=== PATIENT | male | born 2005 | race Caucasian/White ===

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

== ENCOUNTER 2024-06-20 19:45 | Emergency (ER) | payer OTHER, SELFPAY ==
[2024-06-20 19:53] VITALS: BP 114/70; PULSE 108; RESP 18; TEMP 37.8; O2SAT 96; BMI 34.0
[2024-06-20 20:40] LABS: Influenza A - CEPHEID Flu A NEGATIVE (NEGATIVE); Influenza B - CEPHEID Flu B NEGATIVE (NEGATIVE); Respiratory Syncytial Virus Negative (Negative)
[2024-06-20 20:51] LABS: COVID-19 CEPHEID 4-PLEX PCR Negative (Negative)
[2024-06-20 21:10] VITALS: BP 151/74; PULSE 90; RESP 20; TEMP 38.2; O2SAT 96
--- NOTE | 2024-06-20 21:52 | ED_ITS ---
HPI - Headache General Chief Complaint: Headache Stated Complaint: Migraines x3 days, syncope when stands Time Seen by Provider: 06/20/24 21:13 Mode of arrival: Ambulatory History of Present Illness HPI Narrative: 18yoM presents for 3 days of nasal congestion, sinus pressure, bitemporal headache. Reporting nearly passing out after getting up to fill his water bottle. Patient took mucinex D, tylenol, ibuprofen for symptoms this morning. Mother states grandma at home with pneumonia and wanted the patient checked out. Concern is for sinus infection Related Data Home Medications Medication Instructions Recorded Confirmed Acetaminophen/Aspirin/Caffei 1 sgl PO PRN ##0 10/25/12 08/21/21 (EXCEDRIN EXTRA STRENGTH 250 MG-250 MG-65 MG~) fluoxetine 20 mg capsule 20 mg PO QDAY ##0 08/01/17 08/21/21 methylphenidate HCl 20 mg tablet 20 mg PO ##0 08/27/17 08/21/21 (Ritalin) Previous Rx's Medication Instructions Recorded levofloxacin 750 mg tablet 750 mg PO DAILY #10 tabs 12/12/18 Allergies Allergy/AdvReac Type Severity Reaction Status Date / Time penicillin G [PENICILLIN G] Allergy Unknown Verified 08/21/21 14:30 Tape Allergy Unknown Uncoded 08/21/21 14:30 Patient History Medical History ADHD Social History Smoking Status: Never smoker Smoking Status: Never smoker Exam Initial Vital Signs Initial Vital Signs: Vital Signs Temperature 100.0 F H 06/20/24 19:53 Pulse Rate 108 H 06/20/24 19:53 Respiratory Rate 18 06/20/24 19:53 Blood Pressure 114/70 06/20/24 19:53 Pulse Oximetry 96 06/20/24 19:53 Oxygen Delivery Method Room Air 06/20/24 19:53 Const: Awake, alert, appears uncomfortable, nontoxic HEENT: TMs with scant clear fluid, no sinus tenderness, no purulent discharge Cardiac: regular rate, regular rhythm RESP: unlabored, clear bilaterally, no wheezing Skin: Warm, Dry, intact, no rashes Neuro: AO x3, CN II-XII grossly intact, moves all extremities Course Orders Ordered: Discontinued Medications Diphenhydramine HCl (Diphenhydramine 50 Mg/Ml Vial) 50 mg IV NOW ONE Stop: 06/20/24 21:52 Last Admin: 06/20/24 22:19 Dose: 50 mg Documented By: Sodium Chloride (Normal Saline 0.9%) 1,000 mls @ 1,000 mls/hr IV BOLUS ONE Stop: 06/20/24 22:50 Last Infusion: 06/20/24 23:19 Dose: Infused Documented By: Admin: 06/20/24 22:15 Dose: 1,000 mls/hr Documented By: Ketorolac Tromethamine (Ketorolac 30 Mg/Ml Vial) 15 mg IV NOW ONE Stop: 06/20/24 21:52 Last Admin: 06/20/24 22:17 Dose: 15 mg Documented By: Metoclopramide HCl (Metoclopramide 10 Mg/2 Ml Inj) 10 mg IV NOW ONE Stop: 06/20/24 21:52 Last Admin: 06/20/24 22:16 Dose: 10 mg Documented By: Vital Signs Vital signs: Vital Signs - 8 hr 06/20/24 19:53 06/20/24 21:10 Temperature 100.0 F H 100.8 F H Pulse Rate 108 H 90 Respiratory Rate 18 20 Blood Pressure 114/70 151/74 H Pulse Oximetry 96 96 Oxygen Delivery Method Room Air Room Air MDM - Headache Lab Data Labs: Lab Results 06/20/24 Range/Units 20:00 SARS-CoV-2 (PCR) Negative (Negative) Influenza A (RT-PCR) Flu a negative (NEGATIVE) Influenza B (RT-PCR) Flu b negative (NEGATIVE) RSV (PCR) Negative (Negative) MDM Narrative Medical decision making narrative: Well-appearing patient with multiple symptoms consistent with upper respiratory syndrome. No sinus tenderness. Unlikely to be bacterial sinusitis at this time. Patient given migraine cocktail with improvement in headache. Mother counseled that most sinus infections are viral in nature and resolved with conservative treatment. If still having symptoms after day 10 then can consider bacterial sinusitis. Patient counseled to continue to take Tylenol and ibuprofen as neede d for pain or discomfort. Counseled to take Mucinex and Sudafed as needed for decongestants. Symptoms should resolve within the next several days with conservative treatment. Discharge Plan Departure Patient Disposition: Home Clinical Impression: Congestion of nasal sinus, Headache Instructions: DI for Sinus Headache Activity Restrictions/Additional Instructions: Your symptoms are most consistent with a viral illness at this time. Continue to take the [id number] decongestant medication such as Mucinex D. Using saline rinses can help clear sinus passages. Afrin can be used for up to 3 days for sinus congestion. Make sure that you stay hydrated and drink plenty of fluids. Tylenol and ibuprofen can be used as needed for pain, fever, or other discomfort. If you feel worse or do not notice improvement after several days with treatment follow up with your primary care doctor or return to the ER for repeat evaluation. Prescriptions: No Action levofloxacin 750 mg tablet 750 mg PO DAILY Qty: 10 0RF Acetaminophen/Aspirin/Caffei (EXCEDRIN EXTRA STRENGTH 250 MG-250 MG-65 MG~) 1 sgl PO PRN Qty: 0 fluoxetine 20 MG capsule 20 mg PO QDAY Qty: 0 methylphenidate HCl [Ritalin] 20 MG tablet 20 mg PO Qty: 0 Referrals: Miscellaneous,Doctor, MD [Primary Care Provider] - Stand Alone Forms: Patient Portal/API/Survey
[2024-06-20] MEDS: SODIUM CHLORIDE 0.9% 1,000 ML 1000 ML IV (22:15)
[2024-06-20] MEDS: METOCLOPRAMIDE 10 MG/2 ML INJ IV (22:16)
[2024-06-20] MEDS: KETOROLAC 30 MG/ML VIAL 15 MG IV (22:17)
[2024-06-20] MEDS: diphenhydrAMINE 50 MG/ML VIAL IV (22:19)
[2024-06-20 23:26] VITALS: BP 111/56; PULSE 96; RESP 20; TEMP 37.7; O2SAT 96
== END 2024-06-20 23:27 | disposition home or self-care (01) ==
PROVIDERS: Emergency Provider Emergency Medicine
DX: R09.81 Nasal congestion (principal); R51.9 Headache, unspecified; Z20.828 Contact with and (suspected) exposure to other viral communicable diseases
CPT/HCPCS: 87635; 87400 ×2; 87420; 0241U; 96361; 96374; 96375; 99283; 99284; J1200; J1885; J2765